=== PATIENT | female | born 1995 | race African-American/Black ===

== ENCOUNTER 2017-10-22 15:21 | Emergency (ER) | payer SELFPAY ==
[~2017-10-22] VITALS: Ht 180.3 cm; Wt 89.5 kg
[2017-10-22 15:35] VITALS: BP 157/79; PULSE 92; RESP 18; TEMP 98; O2SAT 100
[2017-10-22 16:53] LABS: BACTERIA, URINE RARE /hpf; BILIRUBIN, URINE NEG (NEG); BLOOD, URINE NEG (NEG); GLUCOSE,URINE NEG (NEG); KETONE, URINE TRACE mg/dL (NEG); MUCUS URINE MANY /lpf (OCC); NITRITE,URINE NEG (NEG); SQUAMOUS EPITHELIAL CELL URINE 22 /hpf (0-5); URINE COLOR YELLOW (YELLW/STRAW); URINE LEUKOCYTE ESTERASE MOD (NEG)
--- NOTE | 2017-10-22 16:55 | PD ---
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 Denies pelvic pain at this time. Thinks she has a yeast infection. Unknown exposure to STD/STI. Denies vaginal itching, dysuria, hematuria. Reports increased urine frequency. Denies abdominal pain, fever, vomiting. Last menstrual period was the beginning of September. Reports oral contraception use. Has not taken any medications or trying treatments to alleviate his symptoms. No known aggravating or relieving factors. Symptoms are moderate in severity. No primary care provider. Allergies to cherries. Denies significant past medical history. Has no other medical complaints. No other modifying factors or associated signs and symptoms. PFSH Past Medical History ?: Unknown LMP: last month Social History Alcohol Use: No Tobacco Use: No Substance Use: No Allergies-Medications (Allergen,Severity, Reaction): Coded Allergies: No Known Allergies (Unverified , 10/22/17) Reported Meds & Prescriptions Reported Meds & Active Scripts Active No Active Prescriptions or Reported Medications Review of Systems Except as stated in HPI: all other systems reviewed are Neg Physical Exam Narrative GENERAL: Well-nourished, well-developed black female patient, in no acute distress; afebrile, nontoxic-appearing SKIN: Warm and dry. HEAD: Atraumatic. Normocephalic. EYES: Pupils equal and round. No scleral icterus. No injection or drainage. ENT: Mucous membranes pink and moist. NECK: Trachea midline. No lymphadenopathy. CARDIOVASCULAR: Regular rate and rhythm. No murmur appreciated. RESPIRATORY: No accessory muscle use. Clear to auscultation. Breath sounds equal bilaterally. GASTROINTESTINAL: Abdomen soft, non-tender, nondistended. Bilateral pelvic region nontender to palpation. Hepatic and splenic margins not palpable. No guarding, rigidity, rebound tenderness. PELVIC: Exam done in the presence of a nurse. Speculum exam reveals edematous and erythematous cervix with creamy, white, foul-smelling mucopurulent discharge. Bimanual exam reveals no palpable masses or adnexa tenderness, no uterine tenderness. No cervical motion tenderness. BACK: No CVA tenderness. MUSCULOSKELETAL: No obvious deformities. No clubbing. No cyanosis. No edema. NEUROLOGICAL: Awake and alert. No obvious cranial nerve deficits. Motor grossly within normal limits. Normal speech. PSYCHIATRIC: Appropriate mood and affect; insight and judgment normal. Data Data Last Documented VS Vital Signs Date Time Temp Pulse Resp B/P (MAP) Pulse Ox O2 Delivery O2 Flow Rate FiO2 10/22/17 15:35 98.0 92 18 157/79 (105) 100 Orders Orders Ed Urine Pregnancytest Poc (10/22/17 15:38) Urinalysis - C+S If Indicated (10/22/17 15:38) Gc And Chlamydia Pcr (10/22/17 16:11) Wet Prep Profile (10/22/17 16:11) Ibuprofen (Motrin) (10/22/17 17:00) Labs Laboratory Tests Test 10/22/17 16:10 10/22/17 17:37 Urine Color YELLOW Urine Turbidity HAZY Urine pH 7.0 Urine Specific [place] 1.016 Urine Protein TRACE mg/dL Urine Glucose (UA) NEG mg/dL Urine Ketones TRACE mg/dL Urine Occult Blood NEG Urine Nitrite NEG Urine Bilirubin NEG Urine Urobilinogen LESS THAN 2.0 MG/DL Urine Leukocyte Esterase MOD Urine RBC 2 /hpf Urine WBC 4 /hpf Urine Squamous Epithelial Cells 22 /hpf Urine Bacteria RARE /hpf Urine Mucus MANY /lpf Microscopic Urinalysis Comment CULT NOT INDICATED Clue Cells (Wet Prep) PRESENT Vaginal Trichomonas (Wet Prep) PRESENT Vaginal Yeast (Wet Prep) NONE SEEN Chlamydia trachomatis DNA (PCR) NOT DETECTED Neisseria gonorrhoeae DNA (PCR) NOT DETECTED MDM Medical Decision Making Medical Screen Exam Complete: Yes Emergency Medical Condition: Yes Medical Record Reviewed: Yes Differential Diagnosis PID, vaginal yeast, bacterial vaginosis, trichomonas, chlamydia, gonorrhea, UTI Narrative Course 22-year-old female with cervicitis. Patient does not want to be treated empirically for chlamydia or gonorrhea at this time, although I recommend it. Urinalysis without signs of infection. UPT negative. Patient had to leave to go roll picker her son. Labs and wet prep still pending. AMA: The risks of leaving against medical advice without further evaluation treatment were discussed with the patient. These risks include cardiac dysfunction, cardiac dysrhythmia, possible heart attack, possible stroke or . The patient indicated understanding of these risks and appeared to have the capacity to make this decision. 1851: Trichomonas and clue cells positive. I called the patient and she was not available to take my phone call at that time. 1000 10/23/2017: I attempted to contact the patient again and she, again, was not available to come to the phone. I left a message for her to return my call. 17210/23/2017: I called again and left message on voicemail for the patient to return my call. Diagnosis Primary Impression: Left against medical advice Scripts No Active Prescriptions or Reported Meds Disposition: 07 AGAINST MEDICAL ADVICE Cathi Rodriguez Oct 22, 2017 16:55
[2017-10-22] MEDS ORDERED: IBUPROFEN 800 MG TAB PO ONE (17:00)
== END 2017-10-23 17:52 | disposition left against medical advice (07) ==
LOC: NEPD 15:21
DX: R10.2 Pelvic and perineal pain (principal); N89.8 Other specified noninflammatory disorders of vagina; R35.0 Frequency of micturition
CPT/HCPCS: 81001; 84703; 87210; 87491; 87591; 99284